=== PATIENT | male | born 1955 | race Two or more races ===

== ENCOUNTER 2019-11-20 06:27 | Day surgery (SDC) | payer OTHER | END 2019-11-20 10:10 | disposition home or self-care (01) | LOC: AMB-ENDOS 06:27 | PROVIDERS: ATTEND Surgery | DX: K62.89 Other specified diseases of anus and rectum (principal); K64.2 Third degree hemorrhoids; Z20.828 Contact with and (suspected) exposure to other viral communicable diseases ==

== ENCOUNTER 2022-04-17 05:45 | Day surgery (SDC) | payer OTHER ==
[~2022-04-17] VITALS: Ht 175.3 cm; Wt 63.5 kg
[2022-04-17] MEDS ORDERED: NEURONTIN300 MG PO (09:21)
[2022-04-17] MEDS ORDERED: COLACE100 MG PO (09:21)
[2022-04-17] MEDS ORDERED: METRONIDAZOLE500 MG PO (09:21)
== END 2022-04-17 13:30 | disposition home or self-care (01) ==
LOC: CIR.AMB 05:45
PROVIDERS: ATTEND Surgery
DX: K64.8 Other hemorrhoids (principal); K62.89 Other specified diseases of anus and rectum; K59.09 Other constipation; F17.210 Nicotine dependence, cigarettes, uncomplicated; Z88.8 Allergy status to other drugs, medicaments and biological substances; Z20.822 Contact with and (suspected) exposure to COVID-19